=== PATIENT | male | born 1935 | race Caucasian/White ===

== ENCOUNTER → 2016-09-01 | Outpatient (CLI) | payer MEDICARE, OTHER ==
[~2016-09-01] MED LIST: ASPIRIN LO-DOSE81 MG PO; CENTRUM SILVER1 TAB PO; CITRACAL+D(315M1 TAB PO; COZAAR50 MG PO; CRESTOR20 MG PO; DOCUSATE SODIU100 MG PO; FIORICET-COD 51 EACH PO; LANOXIN (DIGI125 MCG PO; NORVASC5 MG PO; PRESERVISION A1 EAC2 PO; TYLENOL EXTRA500 MG PO; XGEVA120 MG/1.7 SUB-Q; [UNRECOGNIZED DRUG - OTHER] IM; [UNRECOGNIZED DRUG - OTHER] SUB-Q
== END | disposition disaster alternative care site (69) ==
LOC: GRAD 10:32
DX: C61 Malignant neoplasm of prostate (principal); M47.816 Spondylosis without myelopathy or radiculopathy, lumbar region; M53.3 Sacrococcygeal disorders, not elsewhere classified; R93.7 Abnormal findings on diagnostic imaging of other parts of musculoskeletal system
CPT/HCPCS: A9503

== ENCOUNTER → 2016-12-11 | Outpatient (CLI) | payer MEDICARE, OTHER | LOC: LGSMG 16:51 | DX: I48.91 Unspecified atrial fibrillation (principal); Z79.899 Other long term (current) drug therapy; R11.10 Vomiting, unspecified ==